=== PATIENT | male | born 1995 | race Caucasian/White ===

== ENCOUNTER → 2023-06-04 | Outpatient (CLI) | payer OTHER, SELFPAY ==
[2023-06-12 09:09] LABS: Alternaria tenuis <0.10 kU/L (Class 0); Ash, White <0.10 kU/L (Class 0); Aspergillus fumigatus <0.10 kU/L (Class 0); Bermuda Grass <0.10 kU/L (Class 0); Birch <0.10 kU/L (Class 0); Black Walnut <0.10 kU/L (Class 0); Cat Hair / Dander,Stand <0.10 kU/L (Class 0); Cedar, Mountain <0.10 kU/L (Class 0); Cladosporium herbarum <0.10 kU/L (Class 0); Clam <0.10 kU/L (Class 0); Cockroach, American <0.10 kU/L (Class 0); Codfish <0.10 kU/L (Class 0); Corn <0.10 kU/L (Class 0); Cottonwood <0.10 kU/L (Class 0); D farinae Mite <0.10 kU/L (Class 0); D pteronyssinus <0.10 kU/L (Class 0); Dog Epithelia <0.10 kU/L (Class 0); Egg, White <0.10 kU/L (Class 0); Elm, American White <0.10 kU/L (Class 0); Immunoglobulin E 2 IU/mL (6-495); Maple/Box Elder <0.10 kU/L (Class 0); Milk (Cow) <0.10 kU/L (Class 0); Mouse Urine <0.10 kU/L (Class 0); Mulberry, White <0.10 kU/L (Class 0); Oak, White <0.10 kU/L (Class 0); Peanut <0.10 kU/L (Class 0); Pecan <0.10 kU/L (Class 0); Penicillium Notatum <0.10 kU/L (Class 0); Pigweed, Rough <0.10 kU/L (Class 0); Ragweed, Short/Common <0.10 kU/L (Class 0); Russian Thistle <0.10 kU/L (Class 0); SCALLOP <0.10 kU/L (Class 0); SESAME SEED <0.10 kU/L (Class 0); Sheep Sorrel <0.10 kU/L (Class 0); Shrimp <0.10 kU/L (Class 0); Soybean <0.10 kU/L (Class 0); Sycamore, American <0.10 kU/L (Class 0); Timothy Grass <0.10 kU/L (Class 0); Walnut, (Food) <0.10 kU/L (Class 0); Wheat <0.10 kU/L (Class 0)
== END | disposition home or self-care (01) ==
PROVIDERS: PCP Nurse Practitioner Family; Referring Provider Otolaryngology; Visit Provider Otolaryngology
DX: T78.40XA Allergy, unspecified, initial encounter (principal)
CPT/HCPCS: 36415; 82785; 86003

== ENCOUNTER 2023-08-09 14:25 | Emergency (ER) | payer OTHER, SELFPAY ==
[2023-08-09 14:25] VITALS: BP 144/93; PULSE 110; RESP 18; O2SAT 98
[2023-08-09 14:26] VITALS: BP 144/93; PULSE 110; RESP 16; TEMP 37; O2SAT 100; BMI 26.9
--- NOTE | 2023-08-09 14:33 | EDS_ITS ---
HPI History of Present Illness Chief Complaint: Dental Informant: patient Onset/Context/Timing Onset: Days Context: Gradual Onset Narrative Narrative: Patient presents secondary to lower dental pain that started a couple days ago. He noted a red swollen area between 2 of his teeth on the left mandibular surface. Area is now black in color. He also has some red painful swelling to the right lower mandible. He has been using Tylenol and ibuprofen. He states because of some recent reflux he also started taking omeprazole. [facility] Medical History (Updated 08/09/23 @ 14:[address] Michell Manuel MD) Hx of gastroesophageal reflux (GERD) Home Medications ?Medication ?Instructions ?Recorded ?Last Taken ?Type naproxen 500 mg tablet (Naprosyn) 500 mg PO BID PRN pain #20 tabs 08/09/23 Unknown Rx penicillin V potassium 500 mg 500 mg PO 4X/DAY #40 tabs 08/09/23 Unknown Rx tablet Allergy/AdvReac Type Severity Reaction Status Date / Time No Known Allergies Allergy Verified 08/09/23 14:27 ROS ROS ED Constitutional Constitutional ED: Denies chills or fever(s) Eyes Eyes: Denies change in vision ENT ENT ED: Reports other Details: Lower dental pain ; Denies rhinorrhea or sore throat Cardiovascular Cardiovascular: Denies chest pain Respiratory/Chest Respiratory/Chest: Denies cough or dyspnea Gastrointestinal Gastrointestinal: Denies abdominal pain, nausea or vomiting Musculoskeletal Musculoskeletal: Denies back pain or extremity pain Integumentary Denies Abrasions or rash Neurologic Neurologic: Reports headache(s); Denies weakness Psychiatric Psychiatric: Denies anxiety or depression Allergic/Immunologic Allergic/Immunologic ED: Denies lip swelling or urticaria EXAM Physical Exam Const Vital Signs: 08/09/23 14:25 08/09/23 14:26 Temperature 98.6 F Temperature Source Temporal Pulse Rate 110 H 110 H Respiratory Rate 18 16 Blood Pressure 144/93 H 144/93 H Blood Pressure Mean 110 110 Pulse Ox 98 100 Oxygen Delivery Method Room Air Positive well nourished and well developed General Appearance ED: well developed HEENT HEENT Narrative: No facial edema or erythema. Intraoral examination reveals no evidence of trismus. Posterior pharynx is unremarkable. Patient has a small abscess to the gumline along the left mandibular anterior surface. There is some slight erythema and swelling noted on the right as well. No evidence of Roverto's angina. Patient speaks with a strong voice and tolerates secretions well. Eyes EOMs intact bilaterally Neck no lymphadenopathy Chest Wall inspection of chest normal and palpation of chest normal Resp normal respiratory effort and clear to auscultation bilaterally Cardio regular rate and regular rhythm GI non-tender Palpation: soft Extremity normal to inspection Neuro oriented x3 and moves all extremities Psych mental status grossly normal MDM MDM MDM Narrative Medical decision making narrative: Patient will treat with a course of Pen-Vee K and naproxen. He was instructed not to take ibuprofen or Aleve [id number] in addition to this medication. He states he does have a dentist that he can follow-up with. First dose of medication here with prescription sent to the pharmacy for him. Discharge Plan Triage Chief Complaint: Dental ED Provider: Michell Manuel Dx/Rx/DC Orders Clinical Impression: Abscess, dental Instructions: ED Dental Abscess Prescriptions: New penicillin V potassium 500 mg tablet 500 mg PO 4X/DAY Qty: 40 0RF naproxen [Naprosyn] 500 mg tablet 500 mg PO BID PRN (Reason: pain) Qty: 20 0RF Primary Care Provider: JC KELLER Referrals: JC KELLER, [facility] [Primary Care Provider] - Activity Restrictions/Additional Instructions: Follow-up with your dentist in 3 to 7 days. Print Language: Turkmen Disposition Disposition: Home, Self Care
[2023-08-09] MEDS: Naproxen 500 MG Tablet PO (14:35)
[2023-08-09] MEDS: Penicillin Vk 250 MG Tablet 500 MG PO (14:35)
== END 2023-08-09 14:41 | disposition home or self-care (01) ==
LOC: ED 14:41
PROVIDERS: Emergency Provider Emergency Medicine; PCP Nurse Practitioner Family; Visit Provider Emergency Medicine
DX: K04.7 Periapical abscess without sinus (principal)
CPT/HCPCS: 99282